=== PATIENT | female | born 2000 | race Asian ===

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

== ENCOUNTER 2019-02-06 00:43 | Emergency (ER) | payer OTHER ==
[~2019-02-06] VITALS: Ht 160 cm; Wt 52.2 kg
[2019-02-06 00:52] VITALS: BP 136/90
[2019-02-06] MEDS ORDERED: KETOROLAC 30 MG/ML VIAL IM ONE (01:50)
[2019-02-06 02:20] VITALS: BP 129/74
== END 2019-02-06 02:20 | disposition home or self-care (01) ==
LOC: MED 00:43
DX: R06.4 Hyperventilation (principal); F17.200 Nicotine dependence, unspecified, uncomplicated; F12.90 Cannabis use, unspecified, uncomplicated
CPT/HCPCS: 71045; 93005; 96372; 99283; J1885; Q0092

== ENCOUNTER 2021-04-26 01:05 | Emergency (ER) | payer OTHER ==
[~2021-04-26] VITALS: Ht 162.6 cm; Wt 56.2 kg
[2021-04-26 01:17] VITALS: BP 138/97
[2021-04-26] MEDS ORDERED: diphenhydrAMINE 50 MG CAP PO ONE (01:30)
[2021-04-26] MEDS ORDERED: HYDR-636 PO (01:33)
--- NOTE | 2021-04-26 01:36 | NUR ---
patient to lobby
--- NOTE | 2021-04-26 01:59 | NUR ---
patient in triage. awaiting ERMD for further examination.
--- NOTE | 2021-04-26 02:05 | NUR ---
patient ambulated to the bathroom for urine collection
[2021-04-26] MEDS ORDERED: LORazepam 1 MG TAB PO ONE (02:20)
--- NOTE | 2021-04-26 02:26 | NUR ---
ERMD with patient for examination
[2021-04-26 02:45] VITALS: BP 127/72
--- NOTE | 2021-04-26 03:20 | NUR ---
Patient discharged with v/s stable. Written and verbal after care instructions given and explained. Patient verbalized understanding. Ambulatory with steady gait. All questions addressed prior to discharge. Advised to follow up with PMD.
== END 2021-04-26 03:20 | disposition home or self-care (01) ==
LOC: MED 01:05
DX: F41.9 Anxiety disorder, unspecified (principal); Z79.899 Other long term (current) drug therapy
CPT/HCPCS: 81025; 99283; Q0163